=== PATIENT | male | born 1965 | race Caucasian/White ===

== ENCOUNTER 2018-07-31 19:21 | Emergency (ER) | payer BC, OTHER ==
--- NOTE | 2018-07-31 19:31 | PDOC ---
Rapid Medical Evaluation Chief Complaint: Chest Pain Time Seen by Provider: 07/31/18 19:23 Medical Evaluation: 07/31/18 19:31 I have performed a brief in person evaluation of this patient. The patient presents with the CC of: CP HPI: Pt is a 53 YO male who has CP radiating down the left arm. Pt has a hx of AAA with repair and stent. PE: Skin: Clear Lungs: Clear Heart: RRR Abd: non tender MS: Moves all extremities without difficulty Neuro: Alert and oriented Psych: Appropriate affect I have ordered the following: CV protocol Pt will proceed to the main ED for further evaluation. Discharge Disposition - Diagnosis Chest pain Qualifiers: Chest pain type: unspecified Qualified Code(s): R07.9 - Chest pain, unspecified - Referrals - Patient Instructions - Post Discharge Activity
[2018-07-31] MEDS ORDERED: ASPIRIN 81 MG CHEWABLE TABLETS PO ONE (19:32)
[2018-07-31 19:33] VITALS: TEMP 97.8; BMI 37.2
[2018-07-31] MEDS ORDERED: ASPIRIN 81 MG CHEWABLE TABLETS ONE (19:53)
--- NOTE | 2018-07-31 20:07 | PDOC ---
Attending Attestation - HPI HPI: 07/31/18 21:45 The patient is a 53 year old male with a significant past medical history of DM , HTN, HLD, and AAA (with stent placement 4 years ago), who presents to the emergency department today complaining of intermittent chest pain that is radiating to his arm. The patient experiences weakness associated with his arm pain and is aggravated with exertion. Patient reports a similar pain when they experienced an AAA, 4 years ago. Works in a [employer] where he frequently bends and reaches over to gather food. The patient denies shortness of breath, headache and dizziness. Denies abdominal pain, fever, chills, nausea, vomiting, and cough. Denies history of blood clots and recent travel. Denies any urinary issues. Allergies: NKA Past surgical history: Stent, AAA repair Social history: None reported PCP: Dr. Boudreaux - Physicial Exam PE: 07/31/18 21:46 Agree with resident's exam. <Jackie Espinoza - Last Filed: 07/31/18 21:45> - Resident Resident Name: Mio Kim - ED Attending Attestation I have performed the following: The case was reviewed & discussed with the resident, I agree w/resident's findings & plan - Medical Decision Making 07/31/18 23:06 according to nursing staff patient appears to have eloped from the emergency department, he left his gown and IV at the bedside, patient did not announce leading to staff <Cari Singh - Last Filed: 07/31/18 23:09> Attestations - Attestations 07/31/18 21:46 Documentation prepared by Jackie Espinoza, acting as medical pathologist for Cari Singh DO. <Jackie Espinoza - Last Filed: 07/31/18 21:45>
[2018-07-31 20:21] LABS: EOS % 2.2 % (0-4.5); HEMATOCRIT 43.3 % (35.4-49); HEMOGLOBIN 15.5 GM/dL (11.7-16.9); LYMPH % 26.3 % (8-40); MCHC 35.8 g/dl (32.0-35.9); MEAN PLT VOLUME 7.3 fl (7.5-11.1); MONO % 6.1 % (3.8-10.2); NEUT % 64.4 % (42.8-82.8); PLATELET COUNT 258 K/MM3 (134-434); RBC 5.34 M/mm3 (4.00-5.60); RDW 14.4 % (11.9-15.9); WHITE BLOOD COUNT 9.9 K/mm3 (4.0-10.0)
[2018-07-31 20:34] VITALS: BP 168/89; PULSE 78
--- NOTE | 2018-07-31 20:54 | PDOC ---
History of Present Illness - General Chief Complaint: Chest Pain Stated Complaint: CHEST PAINS Time Seen by Provider: 07/31/18 19:23 History Source: Patient Exam Limitations: No Limitations - History of Present Illness Initial Comments: 07/31/18 20:46 Patient is a 53M with history of AAA s/p stenting 4 years ago, DM, HTN, and HLD here today complaining of intermittent chest pain with radiation to his arm. Patient states that he felt this way before when he was found to have an AAA requiring repair. He states his arm becomes weak as well when this pain comes. The pain is worsened with movement. Denies shortness of breath, facial droop, vision changes. Denies abdominal pain, fever, chills, nausea, vomiting, and cough. Denies history of blood clots and recent travel. 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 Past History - Past Medical History Allergies/Adverse Reactions: Allergies Allergy/AdvReac Type Severity Reaction Status Date / Time No Known Allergies Allergy Verified 07/31/18 19:33 Home Medications: Ambulatory Orders Amlodipine Besylate 07/31/18 Aspirin [ASA -] 81 mg PO DAILY 07/31/18 Jardiance 07/31/18 Losartan Potassium 07/31/18 Simvastatin 07/31/18 Cardiac Disorders: Yes (STENT) COPD: No Diabetes: Yes HTN: Yes Hypercholesterolemia: Yes Other medical history: AAA - Surgical History Abdominal Surgery: Yes (AAA REPAIR) Cardiac Surgery: Yes (STENT) - Suicide/Smoking/Psychosocial Hx Smoking History: Never smoked Review of Systems - Review of Systems Comments:: 07/31/18 20:49 GENERAL/CONSTITUTIONAL: No fever or chills. No weakness. HEAD, EYES, EARS, NOSE AND THROAT: No change in vision. No sore throat. CARDIOVASCULAR: +chest pain no shortness of breath RESPIRATORY: No cough, wheezing, or hemoptysis. GASTROINTESTINAL: No nausea, vomiting, diarrhea or constipation. GENITOURINARY: No dysuria, frequency, or change in urination. MUSCULOSKELETAL: +l arm pain. No neck or back pain. SKIN: No rash NEUROLOGIC: No headache, vertigo, loss of consciousness, or change in strength/ sensation. ENDOCRINE: No increased thirst. No abnormal weight change HEMATOLOGIC/LYMPHATIC: No anemia, easy bleeding, or history of blood clots. ALLERGIC/IMMUNOLOGIC: No hives or skin allergy. *Physical Exam - Vital Signs Last Vital Signs Temp Pulse Resp BP Pulse Ox 97.8 F 78 20 168/89 99 07/31/18 19:27 07/31/18 20:15 07/31/18 20:15 07/31/18 20:15 07/31/18 20:15 - Physical Exam Comments: 07/31/18 20:58 GENERAL: Awake, alert, and fully oriented, in no acute distress HEAD: No signs of trauma, normocephalic, atraumatic EYES: PERRLA, EOMI, sclera anicteric, conjunctiva clear ENT: Auricles normal inspection, hearing grossly normal, nares patent, oropharynx clear without exudates. Moist mucosa NECK: Normal ROM, supple, no lymphadenopathy, JVD, or masses LUNGS: No distress, speaks full sentences, clear to auscultation bilaterally HEART: Regular rate and rhythm, normal S1 and S2, no murmurs, rubs or gallops, peripheral pulses normal and equal bilaterally. ABDOMEN: Soft, nontender, normoactive bowel sounds. No guarding, no rebound. No masses EXTREMITIES: Normal inspection, Normal range of motion, no edema. No clubbing or cyanosis. Pulses in equal in upper extremities NEUROLOGICAL: Cranial nerves II through XII grossly intact. Normal speech, normal gait, no focal sensorimotor deficits SKIN: Warm, Dry, normal turgor, no rashes or lesions noted. Moderate Sedation - Procedure Monitoring Vital Signs: Procedure Monitoring Vital Signs Temperature 97.8 F 07/31/18 19:27 Pulse Rate 78 07/31/18 20:15 Respiratory Rate 20 07/31/18 20:15 Blood Pressure 168/89 07/31/18 20:15 O2 Sat by Pulse Oximetry (%) 99 07/31/18 20:15 ED Treatment Course - LABORATORY CBC & Chemistry Diagram: 07/31/18 20:05 07/31/18 20:50 - ADDITIONAL ORDERS Additional order review: Laboratory Results 07/31/18 07/31/18 20:05 20:05 PT with INR Cancelled INR Cancelled Sodium Cancelled Potassium Cancelled Chloride Cancelled Carbon Dioxide Cancelled Anion Gap Cancelled BUN Cancelled Creatinine Cancelled Creat Clearance w eGFR Cancelled Random Glucose Cancelled Calcium Cancelled Magnesium Cancelled Total Bilirubin Cancelled AST Cancelled ALT Cancelled Alkaline Phosphatase Cancelled Creatine Kinase Cancelled Troponin I Cancelled Total Protein Cancelled Albumin Cancelled - RADIOLOGY Radiology Studies Ordered: Category Date Time Status CHEST CTA [CT] Stat CT Scan 07/31/18 20:29 Ordered - Medications Given in the ED: ED Medications Discontinued Medications Generic Name Dose Route Start Last Admin Trade Name Tom PRN Reason Stop Dose Admin Aspirin 162 mg 07/31/18 19:32 07/31/18 20:21 Asa - PO 07/31/18 19:33 162 mg ONCE ONE Administration Medical Decision Making - Medical Decision Making 07/31/18 20:58 Patient is 53M with history of AAA, HTN, HLD, DM here today with chest pain radiating to his arm with weakness. Vitals notable for HTN. Repeated in both arms 151/100 in R, 168/89 in L. Currently not in pain. DDx includes, but is not limited to: ACS, dissection, msk pain. Will obs due to multiple risk factors. Aspirin given, cardiac workup with CTA ordered. 07/31/18 23:11 CBC normal. Trop neg. CMP normal. EKG shows normal sinus rhythm with normal rate. No st elevations/depressions. Normal axis. Normal intervals. No significant t wave abnormalities. Patient eloped, Dr Hill notified of results. *DC/Admit/Observation/Transfer Diagnosis at time of Disposition: Chest pain Qualifiers: Chest pain type: unspecified Qualified Code(s): R07.9 - Chest pain, unspecified - Discharge Dispostion Disposition: ELOPED Condition at time of disposition: Stable Decision to Admit order: No - Referrals Referrals: Tom Boudreaux MD [Primary Care Provider] - - Patient Instructions - Post Discharge Activity
[2018-07-31 21:17] LABS: INR 1.06 (0.83-1.09); PROTHROMBIN TIME (PATIENT) 12.5 SEC (9.7-13.0)
[2018-07-31 21:36] LABS: ALBUMIN 3.8 g/dl (3.4-5.0); ALK PHOS 60 U/L (45-117); ANION GAP 10 MMOL/L (8-16); BILIRUBIN,TOTAL 0.3 mg/dL (0.2-1); BLOOD UREA NITROGEN 21 mg/dL (7-18); CALCIUM 9.5 mg/dL (8.5-10.1); CHLORIDE 104 mmol/L (98-107); CO2 24 mmol/L (21-32); GLUCOSE,RANDOM 209 mg/dL (74-106); MAGNESIUM 1.8 mg/dL (1.8-2.4); PHOSPHOROUS 3.3 mg/dL (2.5-4.9); POTASSIUM 3.7 mmol/L (3.5-5.1); SGOT/AST 28 U/L (15-37); SGPT/ALT 39 U/L (13-61); SODIUM 138 mmol/L (136-145); TOT PROT 7.1 g/dl (6.4-8.2)
--- NOTE | 2018-08-01 14:14 | EKG ---
Test Reason : Blood Pressure : / mmHG Vent. Rate : 081 BPM Atrial Rate : 081 BPM P-R Int : 192 ms QRS Dur : 096 ms QT Int : 388 ms P-R-T Axes : 050 -22 038 degrees QTc Int : 450 ms NORMAL SINUS RHYTHM INFERIOR INFARCT , AGE UNDETERMINED ABNORMAL ECG NO PREVIOUS ECGS AVAILABLE Confirmed by CHEYANNE DOLL, [place] ([id number]) on 08/01/2018 2:14:11 PM Referred By: Confirmed By:[place] EDWARD MD
== END 2018-08-01 02:20 | disposition left against medical advice (07) ==
LOC: JER 19:21
DX: I10 Essential (primary) hypertension (principal); E78.5 Hyperlipidemia, unspecified; E11.9 Type 2 diabetes mellitus without complications; Z86.79 Personal history of other diseases of the circulatory system; Z95.5 Presence of coronary angioplasty implant and graft
CPT/HCPCS: 36415; 80053; 82550; 82553; 83735; 84100; 84484; 85025; 85610; 93005; 93010; 99283-25